=== PATIENT | male | born 1950 | race Caucasian/White ===

== ENCOUNTER 2017-01-26 22:29 | Inpatient (IN) | payer OTHER ==
[~2017-01-26] VITALS: Ht 177.8 cm; Wt 112.8 kg
[2017-01-26] MEDS ORDERED: SODIUM CHLORIDE 0.9% 1000ML 1,000 ML IV STA (23:08)
[2017-01-26] MEDS ORDERED: DEXAMETHASONE **PF** INJ 10 MG/ML VIAL IV ONE (23:15)
[2017-01-26] MEDS ORDERED: ALBUT/IPRATROP 3MG/0.5MG NEB 3 ML VIAL INH ONE (23:15)
[2017-01-26 23:49] VITALS: PULSE 86; O2SAT 93
[2017-01-26] MEDS ORDERED: MULT-506 PO (23:57)
[2017-01-26] MEDS ORDERED: ASPI81TA28 PO (23:57)
[2017-01-27] VITALS (10 sets, daily range): BP systolic 121–136; BP diastolic 69–81; PULSE 68–80; TEMP 36.6–37.1; O2SAT 93–96; Ht 177.8 cm; Wt 112.8 kg
[2017-01-27] MEDS ORDERED: GOUT MED PO
[2017-01-27 00:02] LABS: BASO % 0.2 %; BASO ABS # 0.02 K/uL (0-0.2); COMPLETE YES; HEMATOCRIT 42.4 % (42-52); IG% 0.3 %; LYMPH % 13.6 %; LYMPH ABS # 1.45 K/uL (1.2-3.4); MEAN CELL VOLUME 93.8 fL (80-100); MEAN CORPUSCULAR HEMOGLOBIN 31.9 pg (25-34); MEAN PLATELET VOLUME 10.1 fL (7.4-10.4); MONO % 7.7 %; NEUT % 78.2 %; PLATELET COUNT 229 K/uL (130-400); RED BLOOD COUNT 4.52 M/uL (4.7-6.1); WHITE BLOOD COUNT 10.69 K/uL (4.8-10.8)
[2017-01-27] MEDS ORDERED: OSELTAMIVIR PHOSPHATE 75 MG CAP PO STA (00:10)
[2017-01-27 00:17] LABS: BLOOD UREA NITROGEN 13 mg/dl (7-18); BUN/CREATININE RATIO 15.5 (10-20); CALCIUM 8.5 mg/dl (8.5-10.1); CARBON DIOXIDE 28 mmol/L (21-32); CHLORIDE 100 mmol/L (98-107); CREATININE 0.84 mg/dl (0.60-1.40); GLUCOSE 176 mg/dl (70-99); POTASSIUM 3.6 mmol/L (3.5-5.1); SODIUM 133 mmol/L (136-145)
[2017-01-27 00:24] LABS: CKMB/CK RATIO 0.4 (0-3.0)
--- NOTE | 2017-01-27 00:55 | EMERGENCY ROOM VISIT NOTE ---
History Report prepared by Kat: Alan Stephens Under the Supervision of: Dr. Carlin Salcedo M.D. First contact with patient: 23:00 Chief Complaint: FLU LIKE SX Stated Complaint: FLU LIKE SICK History of Present Illness The patient is a 66 year old male who presents to the Emergency Room with complaints of an intermittent cough that began two days ago. The patient states that he has been coughing every thirty seconds. He reports that he has also been experiencing a fever and a lack of appetite. The patient is accompanied by his daughter who states that the patient has been experiencing lightheadedness and dizziness that has been causing him to fall over. She denies that the patient has experienced syncope. The patient states that his symptoms have worsened today, which caused him to report to the ED. He states that he took Tylenol to relieve his symptoms today. The patient admits that he has been in contact with his and daughter who are also ill. The patient reports he has a history of heart surgery. He denies smoking, diabetes, leg swelling, LOC, and vomiting. Source of History: patient Onset: two days ago Position: other (global) Quality: other (cough) Timing: intermittent Modifying Factors (Relieving): tylenol Associated Symptoms: + fevers, No LOC Review of Systems See HPI for pertinent positives & negatives. A total of 10 systems reviewed and were otherwise negative. Past Medical & Surgical Medical Problems: (1) Diabetes (2) Heart disease (3) Hypoxia Surgical Problems: (1) History of open heart surgery Family History Diabetes mellitus FHx: cancer FHx: heart disease Hypertension Kidney disease Kidney stones Social History Smoking Status: Never Smoker Alcohol Use: none Drug Use: none Marital Status: Housing Status: lives with significant other Occupation Status: employed Current/Historical Medications Scheduled Aspirin (Aspirin Ec), 81 MG PO DAILY Multivitamin (Multivitamin), 1 TAB PO DAILY [Gout Med], 1 DOSE PO DIRECTED Allergies Coded Allergies: No Known Allergies (Unverified , 01/26/17) Physical Exam Vital Signs Date Time Temp Pulse Resp B/P (MAP) Pulse Ox O2 Delivery O2 Flow Rate FiO2 01/27/17 04:41 79 20 94 01/27/17 03:30 79 20 147/86 95 Nasal Cannula 01/27/17 01:36 94 Nasal Cannula 3.0 01/27/17 01:30 20 86 Room Air 01/26/17 23:56 82 22 142/85 99 Nebulizer 8.0 01/26/17 23:49 86 22 93 Room Air 01/26/17 22:33 37.1 98 20 162/101 92 Room Air Physical Exam GENERAL: Patient is unwell appearing and in mild distress. HEENT: No acute trauma, normocephalic atraumatic, mucous membranes dry, no nasal congestion, no scleral icterus. NECK: No stridor, no adenopathy, no meningismus, trachea is midline. LUNGS: Dyspneic and tachypneic with diffuse inspiratory/expiratory wheezing. Bilateral base crackles. HEART: Mildly tachycardic and regular rhythm. No murmurs, rubs, gallops appreciated. ABDOMEN: Soft, nontender, bowel sounds positive, no masses appreciated, no peritonitis. BACK: No midline tenderness, no CVA tenderness EXTREMITIES: Normal motion all extremities, no cyanosis, no edema. NEUROLOGIC: Alert and oriented, no acute motor or sensory deficits, no focal weakness, cranial nerves grossly intact. SKIN: No rash, no jaundice, no diaphoresis. Medical Decision & Procedures ER Provider Diagnostic Interpretation: X ray results are stated below per my interpretation and the radiologist's interpretation. ONE VIEW CHEST Status post sternotomy. Enlarged heart without heart failure. No significant effusion nor infiltrate appreciated. No previous for comparison. Laboratory Results 01/26/17 23:40 Red Blood Count 4.52, Mean Corpuscular Volume 93.8, Mean Corpuscular Hemoglobin 31.9, Mean Corpuscular Hemoglobin Concent 34.0, Mean Platelet Volume 10.1, Neutrophils (%) (Auto) 78.2, Lymphocytes (%) (Auto) 13.6, Monocytes (%) (Auto) 7.7, Eosinophils (%) (Auto) 0.0, Basophils (%) (Auto) 0.2, Neutrophils # (Auto) 8.37, Lymphocytes # (Auto) 1.45, Monocytes # (Auto) 0.82, Eosinophils # (Auto) 0.00, Basophils # (Auto) 0.02 01/26/17 23:40 Test 01/26/17 23:32 01/26/17 23:40 01/26/17 23:41 01/26/17 23:46 Influenza Type A Antigen POS for Influ A (NEG) Influenza Type B Antigen Neg for Influ B (NEG) White Blood Count 10.69 K/uL (4.8-10.8) Red Blood Count 4.52 M/uL (4.7-6.1) Hemoglobin 14.4 g/dL (14.0-18.0) Hematocrit 42.4 % (42-52) Mean Corpuscular Volume 93.8 fL (80-100) Mean Corpuscular Hemoglobin 31.9 pg (25-34) Mean Corpuscular Hemoglobin Concent 34.0 g/dl (32-36) Platelet Count 229 K/uL (130-400) Mean Platelet Volume 10.1 fL (7.4-10.4) Neutrophils (%) (Auto) 78.2 % Lymphocytes (%) (Auto) 13.6 % Monocytes (%) (Auto) 7.7 % Eosinophils (%) (Auto) 0.0 % Basophils (%) (Auto) 0.2 % Neutrophils # (Auto) 8.37 K/uL (1.4-6.5) Lymphocytes # (Auto) 1.45 K/uL (1.2-3.4) Monocytes # (Auto) 0.82 K/uL (0.11-0.59) Eosinophils # (Auto) 0.00 K/uL (0-0.5) Basophils # (Auto) 0.02 K/uL (0-0.2) RDW Standard Deviation 43.0 fL (36.4-46.3) RDW Coefficient of Variation 12.5 % (11.5-14.5) Immature Granulocyte % (Auto) 0.3 % Immature Granulocyte # (Auto) 0.03 K/uL (0.00-0.02) Anion Gap 5.0 mmol/L (3-11) Est Creatinine Clear Calc Drug Dose 111.8 ml/min Estimated GFR () 106.5 Estimated GFR (Non- 91.9 BUN/Creatinine Ratio 15.5 (10-20) Calcium Level 8.5 mg/dl (8.5-10.1) Total Creatine Kinase 301 U/L (39-308) Creatine Kinase MB 1.3 ng/ml (0.5-3.6) Creatine Kinase MB Ratio 0.4 (0-3.0) Troponin I < 0.015 ng/ml (0-0.045) Pro-B-Type Natriuretic Peptide 249 pg/ml (0-900) Bedside Lactic Acid Venous 1.19 mmol/L (0.90-1.70) Laboratory results as reviewed by me. Medications Administered Medications (Trade) Dose Ordered Sig/Hiral Route Start Time Stop Time Status Last Admin Dose Admin Albuterol/ Ipratropium (Duoneb) 12 ml ONE ONCE INH 01/26/17 23:15 01/26/17 23:16 DC 01/26/17 23:48 12 ML Dexamethasone Sodium Phosphate (Dexamethasone Inj Pf) 10 mg NOW ONCE IV 01/26/17 23:15 01/26/17 23:16 DC 01/26/17 23:54 10 MG Sodium Chloride 1,000 ml @ 999 mls/hr Q1H1M STAT IV 01/26/17 23:08 01/27/17 00:08 DC 01/26/17 23:54 999 MLS/HR Oseltamivir Phosphate (Tamiflu Cap) 75 mg NOW STAT PO 01/27/17 00:10 01/27/17 00:11 DC 01/27/17 00:16 75 MG ECG Indication: SOB/dyspnea Rate (beats per minute): 83 Rhythm: normal sinus Findings: nonspecific-ST abn (Septal), no acute ischemic change, no ectopy ED Course 2304: The patient was evaluated in room B12B. A complete history and physical exam was performed. 2308: Ordered Sodium Chloride 1000 ml @ 999 mls/hr IV. 2315: Ordered Dexamethasone Sodium Phosphate 10 mg IV, Duoneb 12 ml INH. 2359: I reevaluated the patient and he reports that his breathing is improving but he is coughing more. On Duoneb, the patient's oxygen saturation level is 100. 0032: I reevaluated the patient and his breathing is continuing to improve on Duoneb. 0010: Ordered Tamiflu Cap 75 mg PO. 0102: I discussed the patients case with Dr. Strong, [facility] Hospitalist. He understands the patients case and agrees to accept the patient. The patient will be further evaluated. Medical Decision Differential: Viral, Pharyngitis, Cellulitis, Pneumonia, Influenza, Meningitis, Sepsis, Bacteremia, UTI/Pyelonephritis, Endocrine, Toxicologic, amongst other pathologies entertained. 66 yr old male with flu like symptoms last 2-3 days along with his arrives for evaluation of worsening shob and difficulty ambulating secondary to this. He is quite dyspneic on arrival with very poor lung sounds. No history COPD nor smoking despite his clearly bad lung sounds. Given empiric steroids and started on hour neb. O2 sats borderline though no significantly hypoxic. CXR clear. Labs look OK. Flu positive. Repeat lung exam after several hours still very poor and he is clearly still dyspneic. Given age, positive flu and exam I feel he will need hospitalist monitoring. No clear evidence of need for abx and he was given Tamiflu. Stable throughout ED stay. Medication Reconcilliation Current Medication List: was personally reviewed by me Blood Pressure Screening Patient's blood pressure: Elevated blood pressure Blood pressure disposition: Elevated BP felt to be situational Consults Time Called: 101 Consulting Physician: Dr. Strong [facility] Hospitalist Returned Call: 101 I discussed the patients case with Dr. Strong [facility] Hospitalist. He understands the patients case and agrees to accept the patient. The patient will be further evaluated. Impression Primary Impression: Influenza Additional Impression: Respiratory distress Scribe Attestation The scribe's documentation has been prepared under my direction and personally reviewed by me in its entirety. I confirm that the note above accurately reflects all work, treatment, procedures, and medical decision making performed by me. Departure Information Dispostion Being Evaluated By Hospitalist Referrals No Doctor, Assigned (PCP) Patient Instructions [facility] Problem Qualifiers
--- NOTE | 2017-01-27 03:10 | History and Physical ---
History & Physical Date & Time of Service: Jan 27, 2017 at 03:10 Chief Complaint: Flu Like Sick Primary Care Physician: Tommy Stanford M.D.(ZHAO) History of Present Illness Source: patient Patient is a 66 yr male with PMH of CAD S/P CABG, Nephrolithiasis, HTN, Gout, Sleep apnea and other problems presents with history of flu like symptoms, dry cough, headache, dizziness and fever since 3 days duration. Patient is a poor historian and most of history is obtained from patient's daughter. He reports cough has been progressively worsening and his appetite has been poor. Patient states that his family members have similar symptoms. Denies any history of chest pain, SOB, nausea, vomiting, abd pain, dysuria, recent antibiotic use or recent travel. Patient is unsure about his home medications Past Medical/Surgical History Medical Problems: (1) Diabetes Status: Chronic Surgical Problems: (1) History of open heart surgery Status: Resolved Family History Diabetes mellitus FHx: cancer FHx: heart disease Hypertension Kidney disease Kidney stones Reviewed, Not relevant Social History Smoking Status: Never Smoker Alcohol Use: socially Drug Use: none Marital Status: Occupational Status: employed Allergies Coded Allergies: No Known Allergies (Unverified , 01/26/17) Home Medications Scheduled Aspirin (Aspirin Ec), 81 MG PO DAILY Multivitamin (Multivitamin), 1 TAB PO DAILY [Gout Med], 1 DOSE PO DIRECTED Review of Systems See HPI for pertinent positives & negatives. A total of 10 systems reviewed and were otherwise negative. Physical Exam Vital Signs Date Time Temp Pulse Resp B/P (MAP) Pulse Ox O2 Delivery O2 Flow Rate FiO2 01/27/17 01:36 94 Nasal Cannula 3.0 01/27/17 01:30 20 86 Room Air 01/26/17 23:56 82 22 142/85 99 Nebulizer 8.0 01/26/17 23:49 86 22 93 Room Air 01/26/17 22:33 37.1 98 20 162/101 92 Room Air General Appearance: WD/WN, no apparent distress Head: normocephalic, atraumatic Eyes: normal inspection, PERRL, EOMI, sclerae normal ENT: normal ENT inspection, hearing grossly normal Neck: supple, trachea midline Respiratory/Chest: chest non-tender, lungs clear, normal breath sounds, no respiratory distress, no accessory muscle use Cardiovascular: regular rate, rhythm, no edema, no murmur Abdomen/GI: normal bowel sounds, non tender, soft Back: normal inspection Extremities/Musculoskelatal: normal inspection, no pedal edema Neurologic/Psych: service cleaner II-XII nml as tested, no motor/sensory deficits, alert, normal mood/affect, oriented x 3 Skin: normal color, warm/dry Diagnostics Laboratory Results Results Past 24 Hours Test 01/26/17 23:32 01/26/17 23:40 01/26/17 23:46 Range/Units Influenza Type A Antigen POS for Influ A NEG Influenza Type B Antigen Neg for Influ B NEG White Blood Count 10.69 4.8-10.8 K/uL Red Blood Count 4.52 4.7-6.1 M/uL Hemoglobin 14.4 14.0-18.0 g/dL Hematocrit 42.4 42-52 % Mean Corpuscular Volume 93.8 80-100 fL Mean Corpuscular Hemoglobin 31.9 25-34 pg Mean Corpuscular Hemoglobin Concent 34.0 32-36 g/dl Platelet Count 229 130-400 K/uL Mean Platelet Volume 10.1 7.4-10.4 fL Neutrophils (%) (Auto) 78.2 % Lymphocytes (%) (Auto) 13.6 % Monocytes (%) (Auto) 7.7 % Eosinophils (%) (Auto) 0.0 % Basophils (%) (Auto) 0.2 % Neutrophils # (Auto) 8.37 1.4-6.5 K/uL Lymphocytes # (Auto) 1.45 1.2-3.4 K/uL Monocytes # (Auto) 0.82 0.11-0.59 K/uL Eosinophils # (Auto) 0.00 0-0.5 K/uL Basophils # (Auto) 0.02 0-0.2 K/uL RDW Standard Deviation 43.0 36.4-46.3 fL RDW Coefficient of Variation 12.5 11.5-14.5 % Immature Granulocyte % (Auto) 0.3 % Immature Granulocyte # (Auto) 0.03 0.00-0.02 K/uL Sodium Level 133 136-145 mmol/L Potassium Level 3.6 3.5-5.1 mmol/L Chloride Level 100 98-107 mmol/L Carbon Dioxide Level 28 21-32 mmol/L Anion Gap 5.0 3-11 mmol/L Blood Urea Nitrogen 13 7-18 mg/dl Creatinine 0.84 0.60-1.40 mg/dl Est Creatinine Clear Calc Drug Dose 111.8 ml/min Estimated GFR () 106.5 Estimated GFR (Non- 91.9 BUN/Creatinine Ratio 15.5 10-20 Random Glucose 176 70-99 mg/dl Calcium Level 8.5 8.5-10.1 mg/dl Total Creatine Kinase 301 39-308 U/L Creatine Kinase MB 1.3 0.5-3.6 ng/ml Creatine Kinase MB Ratio 0.4 0-3.0 Troponin I < 0.015 0-0.045 ng/ml Pro-B-Type Natriuretic Peptide 249 0-900 pg/ml Bedside Lactic Acid Venous 1.19 0.90-1.70 mmol/L Diagnostic Radiology CXR: pending EKG EKG: NSR Impression Assessment and Plan Influenza/Hypoxia: Started on Tamiflu Oxygen Support Nebs PRN Check Procalcitonin Hold off on Abx for now IV fluids Antiemetics PRN HTN: Mildly elevated likely situational Plan to resume home meds when able (Obtain home meds from PCP) Monitor CAD S/P CABG Continue Aspirin Will obtain home med list and resume as able H/O Gout/Sleep Apnea continue home meds DVT Px: Lovenox SQ Code Status: Full Code Disposition: Expect to discharge home when stable
[2017-01-27] MEDS ORDERED: ONDANSETRON INJ 2 MG/ML 2 ML VIAL IV PRN (03:15)
[2017-01-27] MEDS ORDERED: ACETAMINOPHEN 325 MG TAB PO PRN (03:15)
[2017-01-27] MEDS ORDERED: SODIUM CHLORIDE 0.9% 1000ML 500 ML IV ONE (03:15)
[2017-01-27] MEDS ORDERED: ALBUT/IPRATROP 3MG/0.5MG NEB 3 ML VIAL INH PRN (03:15)
[2017-01-27 07:09] LABS: PROTHROMBIN TIME (PATIENT) 10.2 SECONDS (9.0-12.0)
--- NOTE | 2017-01-27 07:47 | DIAGNOSTIC IMAGING REPORT ---
CHEST ONE VIEW PORTABLE CLINICAL HISTORY: Shortness of breath. Flulike symptoms. COMPARISON STUDY: No previous studies for comparison. FINDINGS: Median sternotomy wires are noted. There is no pneumothorax or pleural effusion. There is no evidence of pulmonary edema. Moderate cardiomegaly is noted. There is no consolidation to suggest pneumonia. There is a possible hiatal hernia. IMPRESSION: 1. No acute cardiopulmonary findings. 2. Moderate cardiomegaly. 3. Lower mediastinal contour abnormality which may reflect a hiatal hernia. Electronically signed by: Karthikeyan Mclean M.D. 01/27/2017 7:46 AM Dictated Date/Time: 01/27/2017 7:45 AM
[2017-01-27] MEDS: ASPIRIN 81 MG ECTAB PO SCH (09:24)
[2017-01-27] MEDS: OSELTAMIVIR PHOSPHATE 75 MG CAP PO SCH ×2 (09:24→20:59)
[2017-01-27] MEDS: ENOXAPARIN 40 MG/0.4 ML SYR SC SCH (09:25)
--- NOTE | 2017-01-27 18:32 | Progress Note ---
Internal Med Progress Note Date of Service: Jan 27, 2017. Provider Documentation: resting comfortably. feeling better today. denies sob. cough improving. No nausea or abdominal pain. no chest pain. Afebrile. Continue Tamiflu. Don't have home med list yet. Will add low dose Lopressor and monitor. Monitor blood sugars. ASSESSMENT & PLAN: [] DVT PROPHYLAXIS [] DISPOSITION [] Vital Signs: Date Time Temp Pulse Resp B/P (MAP) Pulse Ox O2 Delivery O2 Flow Rate FiO2 01/27/17 15:49 96 Nasal Cannula 2.0 01/27/17 15:24 36.8 73 18 121/75 (90) 93 Nasal Cannula 2.0 01/27/17 15:23 78 95 01/27/17 12:00 96 Nasal Cannula 2.0 01/27/17 11:40 36.8 77 20 131/78 (95) 95 Nasal Cannula 2.0 01/27/17 07:30 96 Nasal Cannula 2.0 01/27/17 07:04 36.8 76 16 126/69 (88) 96 Nasal Cannula 2.0 01/27/17 05:15 37.1 80 130/81 93 Nasal Cannula 2.0 01/27/17 04:41 79 20 94 01/27/17 03:30 79 20 147/86 95 Nasal Cannula 01/27/17 01:36 94 Nasal Cannula 3.0 01/27/17 01:30 20 86 Room Air 01/26/17 23:56 82 22 142/85 99 Nebulizer 8.0 01/26/17 23:49 86 22 93 Room Air 01/26/17 22:33 37.1 98 20 162/101 92 Room Air Lab Results: Results Past 24 Hours Test 01/26/17 23:32 01/26/17 23:40 01/26/17 23:41 01/26/17 23:46 Range/Units Influenza Type A Antigen POS for Influ A NEG Influenza Type B Antigen Neg for Influ B NEG White Blood Count 10.69 4.8-10.8 K/uL Red Blood Count 4.52 4.7-6.1 M/uL Hemoglobin 14.4 14.0-18.0 g/dL Hematocrit 42.4 42-52 % Mean Corpuscular Volume 93.8 80-100 fL Mean Corpuscular Hemoglobin 31.9 25-34 pg Mean Corpuscular Hemoglobin Concent 34.0 32-36 g/dl Platelet Count 229 130-400 K/uL Mean Platelet Volume 10.1 7.4-10.4 fL Neutrophils (%) (Auto) 78.2 % Lymphocytes (%) (Auto) 13.6 % Monocytes (%) (Auto) 7.7 % Eosinophils (%) (Auto) 0.0 % Basophils (%) (Auto) 0.2 % Neutrophils # (Auto) 8.37 1.4-6.5 K/uL Lymphocytes # (Auto) 1.45 1.2-3.4 K/uL Monocytes # (Auto) 0.82 0.11-0.59 K/uL Eosinophils # (Auto) 0.00 0-0.5 K/uL Basophils # (Auto) 0.02 0-0.2 K/uL RDW Standard Deviation 43.0 36.4-46.3 fL RDW Coefficient of Variation 12.5 11.5-14.5 % Immature Granulocyte % (Auto) 0.3 % Immature Granulocyte # (Auto) 0.03 0.00-0.02 K/uL Sodium Level 133 136-145 mmol/L Potassium Level 3.6 3.5-5.1 mmol/L Chloride Level 100 98-107 mmol/L Carbon Dioxide Level 28 21-32 mmol/L Anion Gap 5.0 3-11 mmol/L Blood Urea Nitrogen 13 7-18 mg/dl Creatinine 0.84 0.60-1.40 mg/dl Est Creatinine Clear Calc Drug Dose 111.8 ml/min Estimated GFR () 106.5 Estimated GFR (Non- 91.9 BUN/Creatinine Ratio 15.5 10-20 Random Glucose 176 70-99 mg/dl Calcium Level 8.5 8.5-10.1 mg/dl Total Creatine Kinase 301 39-308 U/L Creatine Kinase MB 1.3 0.5-3.6 ng/ml Creatine Kinase MB Ratio 0.4 0-3.0 Troponin I < 0.015 0-0.045 ng/ml Pro-B-Type Natriuretic Peptide 249 0-900 pg/ml Procalcitonin 0.21 0-0.5 ng/ml Bedside Lactic Acid Venous 1.19 0.90-1.70 mmol/L Test 01/27/17 06:16 Range/Units Prothrombin Time 10.2 9.0-12.0 SECONDS Prothromb Time International Ratio 1.0 0.9-1.1
[2017-01-27] MEDS ORDERED: GLUCAGON FOR INJ 1 MG VIAL SQ PRN (18:45)
[2017-01-27] MEDS ORDERED: GLUCOSE 40% GEL 15 GM TUBE PO PRN (18:45)
[2017-01-27] MEDS ORDERED: DEXTROSE 50% 50 ML SYR IV PRN (18:45)
[2017-01-27] MEDS ORDERED: GLUCOSE 10 TABS/TUBE PO PRN (18:45)
[2017-01-27] MEDS: METOPROLOL TARTRATE 25 MG TAB PO SCH (20:59)
[2017-01-27] MEDS: INSULIN ASPART 100 UNITS/ML 3 ML PEN SC SCH (21:04)
[2017-01-28] VITALS (10 sets, daily range): BP systolic 114–134; BP diastolic 55–86; PULSE 61–82; TEMP 36.3–37; O2SAT 93–96
[2017-01-28 06:33] LABS: BASO % 0.1 %; BASO ABS # 0.01 K/uL (0-0.2); COMPLETE YES; HEMATOCRIT 39.5 % (42-52); IG% 0.3 %; LYMPH % 21.7 %; LYMPH ABS # 1.98 K/uL (1.2-3.4); MEAN CORPUSCULAR HEMOGLOBIN 31.2 pg (25-34); MEAN CORPUSCULAR HGB CONC 33.2 g/dl (32-36); MEAN PLATELET VOLUME 10.2 fL (7.4-10.4); MONO % 6.9 %; PLATELET COUNT 242 K/uL (130-400); WHITE BLOOD COUNT 9.13 K/uL (4.8-10.8)
[2017-01-28 07:12] LABS: BUN/CREATININE RATIO 27.5 (10-20); CALCIUM 8.2 mg/dl (8.5-10.1); CREATININE 0.65 mg/dl (0.60-1.40); MAGNESIUM 2.2 mg/dl (1.8-2.4); POTASSIUM 3.9 mmol/L (3.5-5.1)
[2017-01-28] MEDS: ASPIRIN 81 MG ECTAB PO SCH (09:05)
[2017-01-28] MEDS: METOPROLOL TARTRATE 25 MG TAB PO SCH (09:05)
[2017-01-28] MEDS: OSELTAMIVIR PHOSPHATE 75 MG CAP PO SCH ×2 (09:06→21:23)
[2017-01-28] MEDS: ENOXAPARIN 40 MG/0.4 ML SYR SC SCH (09:07)
[2017-01-28] MEDS: INSULIN ASPART 100 UNITS/ML 3 ML PEN SC SCH ×4 (09:11→21:23)
--- NOTE | 2017-01-28 18:32 | Progress Note ---
Internal Med Progress Note Date of Service: Jan 28, 2017. Provider Documentation: resting comfortably. denies any sob cough improving no nausea or abdominal discomfort afebrile Exam: General-alert and awake and not in distress ENT- normal hearing Neck-no neck masses Lungs-cta b/l no wheezing no crackles present Heart-s1 and s2 heard regular rate and rhythm no murmurs Abdomen-soft BS present non tender no distension Extremities- no edema no erythema Neuro-alert and awake moves extremities ASSESSMENT & PLAN: Influenza/Hypoxia: Started on Tamiflu oxygen and nebs prn improving HTN: on ramipril 2.5 mg daily but says he wont take it regularly CAD S/P CABG Continue Aspirin on pravastatin Sleep Apnea cpap DVT Px: Lovenox SQ DISPOSITION pt/ot to be determined Vital Signs: Date Time Temp Pulse Resp B/P (MAP) Pulse Ox O2 Delivery O2 Flow Rate FiO2 01/28/17 16:00 Room Air 01/28/17 15:09 36.7 61 20 134/84 (101) 95 Room Air 01/28/17 11:20 Room Air 01/28/17 11:20 36.6 74 20 114/55 (74) 95 Room Air 01/28/17 07:30 Room Air 01/28/17 07:30 36.7 82 18 134/86 (102) 94 Room Air 01/28/17 05:42 36.3 68 18 116/77 (90) 94 Room Air 01/28/17 04:29 93 Room Air 2.0 01/28/17 00:00 93 Room Air 2.0 01/27/17 23:12 36.7 68 18 127/74 (91) 93 Room Air 01/27/17 20:00 93 Room Air 2.0 01/27/17 20:00 36.6 72 20 131/80 (97) 93 Room Air Lab Results: Results Past 24 Hours Test 01/27/17 21:01 01/28/17 06:17 01/28/17 06:21 01/28/17 11:01 Range/Units Bedside Glucose 266 184 175 70-99 mg/dl White Blood Count 9.13 4.8-10.8 K/uL Red Blood Count 4.20 4.7-6.1 M/uL Hemoglobin 13.1 14.0-18.0 g/dL Hematocrit 39.5 42-52 % Mean Corpuscular Volume 94.0 80-100 fL Mean Corpuscular Hemoglobin 31.2 25-34 pg Mean Corpuscular Hemoglobin Concent 33.2 32-36 g/dl Platelet Count 242 130-400 K/uL Mean Platelet Volume 10.2 7.4-10.4 fL Neutrophils (%) (Auto) 71.0 % Lymphocytes (%) (Auto) 21.7 % Monocytes (%) (Auto) 6.9 % Eosinophils (%) (Auto) 0.0 % Basophils (%) (Auto) 0.1 % Neutrophils # (Auto) 6.48 1.4-6.5 K/uL Lymphocytes # (Auto) 1.98 1.2-3.4 K/uL Monocytes # (Auto) 0.63 0.11-0.59 K/uL Eosinophils # (Auto) 0.00 0-0.5 K/uL Basophils # (Auto) 0.01 0-0.2 K/uL RDW Standard Deviation 42.5 36.4-46.3 fL RDW Coefficient of Variation 12.5 11.5-14.5 % Immature Granulocyte % (Auto) 0.3 % Immature Granulocyte # (Auto) 0.03 0.00-0.02 K/uL Sodium Level 136 136-145 mmol/L Potassium Level 3.9 3.5-5.1 mmol/L Chloride Level 106 98-107 mmol/L Carbon Dioxide Level 27 21-32 mmol/L Anion Gap 3.0 3-11 mmol/L Blood Urea Nitrogen 18 7-18 mg/dl Creatinine 0.65 0.60-1.40 mg/dl Est Creatinine Clear Calc Drug Dose 143.1 ml/min Estimated GFR () 118.3 Estimated GFR (Non- 102.1 BUN/Creatinine Ratio 27.5 10-20 Random Glucose 192 70-99 mg/dl Calcium Level 8.2 8.5-10.1 mg/dl Magnesium Level 2.2 1.8-2.4 mg/dl Test 01/28/17 16:20 Range/Units Bedside Glucose 160 70-99 mg/dl
[2017-01-28] MEDS ORDERED: SODIUM CHLORIDE 0.65% NA SOLN 45 ML (OCEAN) ONE (23:25)
[2017-01-28] MEDS ORDERED: NURSING VERBAL MED ORDER ONE (23:45)
[2017-01-28] MEDS ORDERED: SODIUM CHLORIDE 0.65% NA SOLN 45 ML (OCEAN) PRN (23:45)
[2017-01-29] VITALS (9 sets, daily range): BP systolic 112–153; BP diastolic 66–92; PULSE 55–68; TEMP 36.6–37.3; O2SAT 90–95
[2017-01-29] MEDS: OSELTAMIVIR PHOSPHATE 75 MG CAP PO SCH ×2 (08:13→20:49)
[2017-01-29] MEDS: ASPIRIN 81 MG ECTAB PO SCH (08:14)
[2017-01-29] MEDS: LISINOPRIL 2.5 MG TAB PO SCH (08:14)
[2017-01-29] MEDS: INSULIN ASPART 100 UNITS/ML 3 ML PEN SC SCH ×4 (08:18→20:50)
[2017-01-29] MEDS: ENOXAPARIN 40 MG/0.4 ML SYR SC SCH (08:19)
--- NOTE | 2017-01-29 11:13 | Progress Note ---
Internal Med Progress Note Date of Service: Jan 29, 2017. Provider Documentation: resting comfortably. feels congested and has cough but denies any sob no pain eating ok hemodynamics stable Exam: General-alert and awake and not in distress ENT- normal hearing Neck-no neck masses Lungs-cta b/l no wheezing no crackles present Heart-s1 and s2 heard regular rate and rhythm no murmurs Abdomen-soft BS present non tender no distension Extremities- no edema no erythema Neuro-alert and awake moves extremities ASSESSMENT & PLAN: Influenza/Hypoxia: Started on Tamiflu oxygen and nebs prn improving cxr for any superimposed pneumonia HTN: on ramipril 2.5 mg daily but says he wont take it regularly started on lisinopril 2.5( as our pharmacy does not carry ramipril) will monitor CAD S/P CABG Continue Aspirin on pravastatin Sleep Apnea cpap DVT Px: Lovenox SQ DISPOSITION pt/ot to be determined Vital Signs: Date Time Temp Pulse Resp B/P (MAP) Pulse Ox O2 Delivery O2 Flow Rate FiO2 01/29/17 08:00 Room Air 01/29/17 07:21 36.6 55 18 118/77 (91) 93 Room Air 01/29/17 04:00 95 Room Air 01/29/17 03:31 36.7 68 19 153/92 (112) 95 Room Air 01/28/17 23:59 94 Room Air 01/28/17 23:37 36.8 73 16 127/73 (91) 94 Room Air 01/28/17 20:00 96 Room Air 01/28/17 19:43 37.0 70 20 124/68 (86) 96 Room Air 01/28/17 16:00 Room Air 01/28/17 15:09 36.7 61 20 134/84 (101) 95 Room Air 01/28/17 11:20 Room Air 01/28/17 11:20 36.6 74 20 114/55 (74) 95 Room Air Lab Results: Results Past 24 Hours Test 01/28/17 16:20 01/28/17 20:00 01/29/17 06:27 Range/Units Bedside Glucose 160 180 159 70-99 mg/dl
--- NOTE | 2017-01-29 15:59 | DIAGNOSTIC IMAGING REPORT ---
CHEST ONE VIEW PORTABLE CLINICAL HISTORY: Hypoxia. Pneumonia. COMPARISON STUDY: Chest radiograph January 26, 2017. FINDINGS: Median sternotomy wires and clips from bypass grafting are noted. Cardiomegaly is unchanged. There is no evidence for pulmonary edema. No pneumothorax or pleural effusion is present. There is no consolidation to suggest pneumonia. Lower mediastinal contour abnormality may reflect a hiatal hernia. IMPRESSION: 1. No acute cardiopulmonary findings. 2. Lower mediastinal contour abnormality which may reflect a hiatal hernia. Electronically signed by: Karthikeyan Mclean M.D. 01/29/2017 3:58 PM Dictated Date/Time: 01/29/2017 3:57 PM
[2017-01-29] MEDS ORDERED: PRAVASTATIN SOD 40 MG TAB PO SCH (17:00)
[2017-01-30 06:26] LABS: HEMATOCRIT 42.3 % (42-52); MEAN CELL VOLUME 94.2 fL (80-100); MEAN CORPUSCULAR HEMOGLOBIN 31.4 pg (25-34); MEAN CORPUSCULAR HGB CONC 33.3 g/dl (32-36); MEAN PLATELET VOLUME 10.2 fL (7.4-10.4); PLATELET COUNT 277 K/uL (130-400); RED BLOOD COUNT 4.49 M/uL (4.7-6.1)
[2017-01-30 06:45] LABS: CREATININE 0.83 mg/dl (0.60-1.40)
[2017-01-30 07:23] VITALS: BP 118/75; PULSE 63; TEMP 36.9; O2SAT 93
[2017-01-30] MEDS: OSELTAMIVIR PHOSPHATE 75 MG CAP PO SCH (07:37)
[2017-01-30] MEDS: LISINOPRIL 2.5 MG TAB PO SCH (07:37)
[2017-01-30] MEDS: ASPIRIN 81 MG ECTAB PO SCH (07:37)
[2017-01-30 08:41] VITALS: O2SAT 93
[2017-01-30] MEDS ORDERED: COUGH DROP (SUGAR FREE) LOZ 24 LOZ/1 BOX ONE (08:58)
[2017-01-30] MEDS: ENOXAPARIN 40 MG/0.4 ML SYR SC SCH (09:20)
[2017-01-30] MEDS: INSULIN ASPART 100 UNITS/ML 3 ML PEN SC SCH ×2 (09:25→13:03)
[2017-01-30] MEDS ORDERED: TMF75 PO ×2 (11:52→11:53)
[2017-01-30] MEDS ORDERED: DOXY100C41 PO (11:52)
[2017-01-30] MEDS ORDERED: RBTUDL5 PO (11:52)
[2017-01-30] MEDS ORDERED: PRAV40TA2 PO (11:54)
[2017-01-30] MEDS ORDERED: RAMI2.5C PO (11:54)
--- NOTE | 2017-01-30 11:55 | Discharge Instructions ---
Discharge Instructions Date of Service Jan 30, 2017. Admission Reason for Admission: Hypoxia, Influenza Discharge Discharge Diagnosis / Problem: influenza Discharge Goals Goal(s): Decrease discomfort, Improve function Activity Recommendations Activity Limitations: resume your previous activity . Instructions / Follow-Up Instructions / Follow-Up FOLLOWUP WITH FAMILY DOCTOR IN ONE WEEK. KINDLY TAKE ALL THE MEDICATIONS PRESCRIBED INCLUDING HOME MEDICATIONS Current Hospital Diet Patient's current hospital diet: AHA Diet (Heart Healthy), Diabetes Type 2 Diet Discharge Diet Recommended Diet: AHA Diet (Heart Healthy), Diabetes Type 2 Diet Pending Studies Studies pending at discharge: no Medical Emergencies . Who to Call and When: Medical Emergencies: If at any time you feel your situation is an emergency, please call 911 immediately. . Non-Emergent Contact Non-Emergency issues call your: Primary Care Provider . . "Provider Documentation" section prepared by Clarke De. . VTE Core Measure Inpt VTE Proph given/why not?: Enoxaparin (Lovenox)SQ
--- NOTE | 2017-01-30 12:08 | Progress Note ---
Internal Med Progress Note Date of Service: Jan 30, 2017. Provider Documentation: resting comfortably. denies sob has cough afebrile slept fine ok to go home today Exam: General-alert and awake and not in distress ENT- normal hearing Neck-no neck masses Lungs-cta b/l no wheezing no crackles present Heart-s1 and s2 heard regular rate and rhythm no murmurs Abdomen-soft BS present non tender no distension Extremities- no edema no erythema Neuro-alert and awake moves extremities ASSESSMENT & PLAN: Influenza/Hypoxia: Started on Tamiflu oxygen and nebs prn improving cxr ok d/jake on tamiflu to complete 5 day course doxy 5 day course to cover for any superimposed bacterial infection HTN: on ramipril 2.5 mg daily but says he wont take it regularly started on lisinopril 2.5( as our pharmacy does not carry ramipril) d/c on home meds CAD S/P CABG Continue Aspirin on pravastatin Sleep Apnea cpap discharged home Vital Signs: Date Time Temp Pulse Resp B/P (MAP) Pulse Ox O2 Delivery O2 Flow Rate FiO2 01/30/17 08:41 93 Room Air 01/30/17 07:23 36.9 63 18 118/75 (89) 93 Room Air 01/29/17 23:51 37.3 60 20 112/66 (81) 93 Room Air 01/29/17 23:00 Room Air 01/29/17 19:35 36.7 63 20 152/89 (110) 94 Room Air 01/29/17 19:07 36.9 59 20 91 2.0 01/29/17 16:12 36.9 59 20 138/81 (100) 91 Room Air 01/29/17 16:00 91 Room Air Lab Results: Results Past 24 Hours Test 01/29/17 16:08 01/29/17 20:31 01/30/17 05:26 01/30/17 07:55 Range/Units Bedside Glucose 156 141 179 70-99 mg/dl White Blood Count 9.10 4.8-10.8 K/uL Red Blood Count 4.49 4.7-6.1 M/uL Hemoglobin 14.1 14.0-18.0 g/dL Hematocrit 42.3 42-52 % Mean Corpuscular Volume 94.2 80-100 fL Mean Corpuscular Hemoglobin 31.4 25-34 pg Mean Corpuscular Hemoglobin Concent 33.3 32-36 g/dl RDW Standard Deviation 42.1 36.4-46.3 fL RDW Coefficient of Variation 12.2 11.5-14.5 % Platelet Count 277 130-400 K/uL Mean Platelet Volume 10.2 7.4-10.4 fL Creatinine 0.83 0.60-1.40 mg/dl Est Creatinine Clear Calc Drug Dose 111.6 ml/min Estimated GFR () 107.0 Estimated GFR (Non- 92.3 Test 01/30/17 11:15 Range/Units Bedside Glucose 173 70-99 mg/dl
[2017-01-30 12:09] VITALS: BP 118/75; PULSE 63; TEMP 36.9; O2SAT 93
== END 2017-01-30 13:56 | disposition home or self-care (01) | DRG 153 ==
LOC: C.EDB 22:32 → C.2T 01-27 03:14 → ENRESERV 01-27 04:30 → C.MS4W 01-29 18:51
PROVIDERS: ADMIT Internal Medicine; ATTEND Internal Medicine
DX: J11.1 Influenza due to unidentified influenza virus with other respiratory manifestations (principal); R09.02 Hypoxemia; I10 Essential (primary) hypertension; I25.10 Atherosclerotic heart disease of native coronary artery without angina pectoris; M10.9 Gout, unspecified; G47.30 Sleep apnea, unspecified; Z95.1 Presence of aortocoronary bypass graft; Z87.442 Personal history of urinary calculi; Z79.82 Long term (current) use of aspirin; Z83.3 Family history of diabetes mellitus; Z82.49 Family history of ischemic heart disease and other diseases of the circulatory system; Z84.1 Family history of disorders of kidney and ureter